=== PATIENT | female | born 1995 | race Caucasian/White ===

== ENCOUNTER 2017-08-26 08:30 | Outpatient (CLI) | payer OTHER ==
--- NOTE | 2017-08-26 10:34 | ULT ---
THYROID ULTRASOUND: 08/26/2017 HISTORY: Thyroid nodule. FINDINGS: The right lobe of the thyroid gland measures 4 cm x 1.5 cm x 1.2 cm, with the left lobe measuring 4.5 cm x 1.4 cm x 1.1 cm. The thyroid isthmus measures 0.35 cm in AP dimension. There is a tiny, approximately 2 mm, anechoic, cystic appearing nodule, with suggestion of a thin vinayak ear septation. There is also a punctate echogenic focus present along the wall of this tiny nodule. Within the superior pole, left lobe of thyroid gland, there is a less than 2 mm, tiny, hypoechoic no dule present in the superior pole, left lobe of the thyroid gland. No additional thyroid nodules are seen. IMPRESSION: TI-RADS category 3: Mildly suspicious nodules. Due to the size of these nodules, no followup is war ranted. POS: ISAAC
== END 2017-08-26 08:31 | disposition home or self-care (01) ==
LOC: SCSULT 08:30
PROVIDERS: ATTEND Family Medicine
DX: E04.1 Nontoxic single thyroid nodule (principal)
CPT/HCPCS: 76536

== ENCOUNTER 2018-11-10 14:51 | Outpatient (CLI) | payer OTHER ==
--- NOTE | 2018-11-10 15:42 | RAD ---
Cervical spine 4 views: 11/10/2018 COMPARISON: None HISTORY: Pain FINDINGS: Cervical vertebral body height and alignment appears within normal limits. Open-mouth odont oid view is unremarkable. The cervicothoracic junction is unremarkable on the provided swimmer's lateral view. IMPRESSION: No acute findings.
--- NOTE | 2018-11-10 16:29 | RAD ---
EXAM: LUMBAR SPINE FOUR VIEWS: 11/10/18 HISTORY: Back pain for many years. Patient's mother diagnosed with ankylosing spondylitis. FINDINGS: Disc spaces are adequately preserved. No fracture, dislocation or malalignment. No evidence for anter o or retrolisthesis. No abnormal translation between flexion and extension. IMPRESSION: Unremarkable lumbar spine. POS: RRE
--- NOTE | 2018-11-10 16:50 | RAD ---
EXAM: THORACIC SPINE TWO VIEWS: 11/10/18 HISTORY: Thoracic spine pain. Patient's mother diagnosed with ankylosing spondylitis. Two views of the thoracic spine demonstrate no fracture, dislocation, or other significant acute osse ous abnormality. IMPRESSION: Unremarkable thoracic spine. POS: RRE
== END 2018-11-10 14:52 | disposition home or self-care (01) ==
LOC: SCSRAD 14:51
PROVIDERS: ATTEND Family Medicine
DX: M54.5 Low back pain (principal); G89.29 Other chronic pain; Z82.69 Family history of other diseases of the musculoskeletal system and connective tissue
CPT/HCPCS: 72050; 72072; 72120